=== PATIENT | female | born 1950 | race Caucasian/White ===

== ENCOUNTER 2016-03-23 13:42 | Emergency (ER) | payer MEDICARE, OTHER ==
--- NOTE | 2016-03-23 14:19 | ER Document Report ---
ED Medical Screen (RME) - General Chief Complaint: Anxious Stated Complaint: ANXIOUS,SLURRED SPEECH,WEAKNESS Notes: 66 yo female with hx/o HTN, Hyperlipidemia c/o forgetfulness, anxiousness, difficulty holding things, slurred speech. Pt reports symptoms having been ongoing since when she was treated with Augmentin for a sinus infection. No neuro deficits noted. Speech is deliberate but no slurred. TRAVEL OUTSIDE OF THE [place] IN LAST 30 DAYS: Yes - Related Data Allergies/Adverse Reactions: No Known Allergies Allergy (Unverified 03/23/16 13:55) Past Medical History - Social History Chew tobacco use (# tins/day): No Frequency of alcohol use: None Drug Abuse: None Physical Exam - Vital signs Vitals: Temp Pulse Resp BP Pulse Ox 98.3 F 113 H 18 154/95 H 97 03/23/16 13:56 03/23/16 13:56 03/23/16 13:56 03/23/16 13:56 03/23/16 13:56 Course - Vital Signs Vital signs: Temp Pulse Resp BP Pulse Ox 98.3 F 113 H 18 154/95 H 97 03/23/16 13:56 03/23/16 13:56 03/23/16 13:56 03/23/16 13:56 03/23/16 13:56
[2016-03-23 14:54] LABS: ABSOLUTE BASOPHILS # (AUTO) 0.1 10^3/uL (0.0-0.2); ABSOLUTE EOSINOPHILS # (AUTO) 0.4 10^3/uL (0.0-0.6); ABSOLUTE LYMPHOCYTES (AUTO) 1.1 10^3/uL (0.5-4.7); ABSOLUTE MONOCYTES (AUTO) 0.5 10^3/uL (0.1-1.4); ABSOLUTE NEUT (AUTO) 4.1 10^3/uL (1.7-8.2); BASOPHILS % (AUTO) 1.1 % (0-2); EOSINOPHILS % (AUTO) 5.7 % (0-6); HEMATOCRIT 41.4 % (36.0-47.0); HEMOGLOBIN 14.3 g/dL (12.0-15.5); HGB HCT DIFFERENCE 1.5; LYMPHOCYTES % (AUTO) 18.5 % (13-45); MEAN CORPUSCULAR HEMOGLOBIN 31.5 pg (27.0-33.4); MEAN CORPUSCULAR HGB CONC 34.5 g/dL (32.0-36.0); MEAN CORPUSCULAR VOLUME 91 fl (80-97); MONOCYTES % (AUTO) 8.3 % (3-13); RED BLOOD COUNT 4.53 10^6/uL (3.72-5.28); RED CELL DISTRIBUTION WIDTH 13.2 % (11.5-14.0); SEGMENTED NEUTROPHILS % (AUTO) 66.4 % (42-78); WHITE BLOOD COUNT 6.2 10^3/uL (4.0-10.5)
[2016-03-23 14:57] LABS: APPEARANCE,URINE CLEAR; BILIRUBIN,URINE NEGATIVE (NEGATIVE); GLUCOSE, URINE NEGATIVE (NEGATIVE); KETONES,URINE NEGATIVE (NEGATIVE); LEUKOCYTE ESTERASE,URINE TRACE (NEGATIVE); NITRITE,URINE NEGATIVE (NEGATIVE); PROTEIN,URINE NEGATIVE (NEGATIVE); URINE SPECIFIC GRAVITY 1.008; UROBILINOGEN,URINE NEGATIVE mg/dL (<2.0)
[2016-03-23 15:04] LABS: PROTHROMBIN TIME 12.3 SEC (11.4-15.4)
[2016-03-23 15:08] LABS: ALANINE AMINOTRANSFERASE 35 U/L (9-52); ALBUMIN 3.7 g/dL (3.5-5.0); ALKALINE PHOSPHATASE 99 U/L (38-126); ANION GAP 11 (5-19); ASPARTATE AMINO TRANSFERASE 29 U/L (14-36); BILIRUBIN,TOTAL 0.3 mg/dL (0.2-1.3); BLOOD UREA NITROGEN 14 mg/dL (7-20); CALCIUM 9.3 mg/dL (8.4-10.2); CARBON DIOXIDE 29 mmol/L (22-30); CHLORIDE 103 mmol/L (98-107); CREATININE RESULT 0.82 mg/dL (0.52-1.25); GLUCOSE 125 mg/dL (75-110); POTASSIUM 4.4 mmol/L (3.6-5.0); SODIUM 143.1 mmol/L (137-145); TOTAL PROTEIN 6.9 g/dL (6.3-8.2)
--- NOTE | 2016-03-23 16:52 | ER Document Report ---
ED General - General Chief Complaint: Anxious Stated Complaint: ANXIOUS,SLURRED SPEECH,WEAKNESS Notes: The patient is a 66-year-old female, past medical history anxiety, depression, hypothyroidism, hyperlipidemia, presents with 2 weeks of intermittent feelings of anxiety and forgetfulness. She says that when she takes her home Xanax, she feels much better. She also thinks that she is slurring her words a few weeks ago, which has resolved. She denies headache, head injury, chest pain, short of breath, abdominal pain, nausea, vomiting, weakness, numbness or tingling. TRAVEL OUTSIDE OF THE [place] IN LAST 30 DAYS: Yes - Related Data Allergies/Adverse Reactions: No Known Allergies Allergy (Unverified 03/23/16 13:55) Past Medical History - Social History Smoking Status: Former Smoker Chew tobacco use (# tins/day): No Frequency of alcohol use: None Drug Abuse: None Family History: Reviewed & Not Pertinent Patient has suicidal ideation: No Patient has homicidal ideation: No Review of Systems - Review of Systems Notes: REVIEW OF SYSTEMS: CONSTITUTIONAL: Denies fever, chills, or sweats. Denies recent illness. EENT: Denies eye, ear, throat, or mouth pain or symptoms. Denies nasal or sinus congestion. CARDIOVASCULAR: Denies chest pain. RESPIRATORY: Denies cough, cold, or chest congestion. Denies shortness of breath, difficulty breathing, or wheezing. GASTROINTESTINAL: Denies abdominal pain. Denies nausea, vomiting, or diarrhea. Denies constipation. GENITOURINARY: Denies difficulty urinating, painful urination, burning, frequency, or blood in urine. FEMALE GENITOURINARY: Denies vaginal bleeding, abnormal or irregular periods. MUSCULOSKELETAL: Denies neck or back pain or joint pain or swelling. SKIN: Denies rash or skin lesions. HEMATOLOGIC: Denies easy bruising or bleeding. LYMPHATIC: Denies swollen, enlarged glands. NEUROLOGICAL: Denies altered mental status or loss of consciousness. Denies headache. +Tremor. Denies weakness or paralysis or loss of use of either side. Denies problems with gait or speech. Denies sensory or motor loss. PSYCHIATRIC: +anxiety. Denies stress or depression. ALL OTHER SYSTEMS REVIEWED AND NEGATIVE. Physical Exam - Vital signs Vitals: Temp Pulse Resp BP Pulse Ox 98.3 F 113 H 18 154/95 H 97 03/23/16 13:56 03/23/16 13:56 03/23/16 13:56 03/23/16 13:56 03/23/16 13:56 - Notes Notes: PHYSICAL EXAMINATION: GENERAL: Well-appearing, well-nourished and in no acute distress. HEAD: Atraumatic, normocephalic. EYES: Pupils equal round and reactive to light, extraocular movements intact, sclera anicteric, conjunctiva are normal. ENT: nares patent, oropharynx clear without exudates. Moist mucous membranes. NECK: Normal range of motion, supple without lymphadenopathy LUNGS: Breath sounds clear to auscultation bilaterally and equal. No wheezes rales or rhonchi. HEART: Regular rate and rhythm without murmurs ABDOMEN: Soft, nontender, normoactive bowel sounds. No guarding, no rebound. No masses appreciated. EXTREMITIES: Normal range of motion, no pitting or edema. No cyanosis. NEUROLOGICAL: Cranial nerves grossly intact. Normal speech, normal gait. Normal sensory, motor, and reflex exams. PSYCH: Normal mood, normal affect. SKIN: Warm, Dry, normal turgor, no rashes or lesions noted. Course - Re-evaluation Re-evalutation: 03/23/16 17:17 CT head normal and labs are all unremarkable. Patient asymptomatic at this time and tachycardia resolved on exam. Instructed her to follow-up with her primary care physician for further evaluation and treatment. - Vital Signs Vital signs: Temp Pulse Resp BP Pulse Ox 98.3 F 113 H 18 154/95 H 97 03/23/16 13:56 03/23/16 13:56 03/23/16 13:56 03/23/16 13:56 03/23/16 13:56 - Laboratory Result Diagrams: 03/23/16 14:30 03/23/16 14:30 Laboratory results interpreted by me: 03/23/16 03/23/16 14:30 14:30 Glucose 125 H Ur Leukocyte Esterase TRACE H - Diagnostic Test Radiology reviewed: Image reviewed, Reports reviewed Radiology results interpreted by hi: 03/23/16 17:[address] Discharge - Discharge Clinical Impression: Anxiety Condition: Good Disposition: HOME, SELF-CARE Additional Instructions: Anxiety The physician feels that some of your health problems are being caused by anxiety. Anxiety affects your health in many ways. Anxiety alone can cause palpitations, sweats, chest pains, abdominal pains, shortness of breath, and headaches. It contributes to ulcer disease, high blood pressure, irritable bowel syndrome, and has been shown to cause flare-ups of many other diseases. Anxiety is not a simple disorder to treat. If the anxiety is due to recent life stresses, you may simply need time to "work through" the changes. If the anxiety is due to an underlying unhappiness with yourself or due to psychiatric disturbance, professional help will be needed. Your physician can refer you for further help if needed. Anti-anxiety medication is occasionally given if the stress is acute or if you are having trouble sleeping. Chronic or frequent use of these medications is not a good idea because the body becomes reliant on it, preventing you from dealing with life's normal stresses. Referrals: [facility] [Provider Group] - Follow up as needed
[2016-03-23 17:29] VITALS: BP 180/78
== END 2016-03-23 17:29 | disposition home or self-care (01) ==
LOC: ER 13:42
DX: F41.9 Anxiety disorder, unspecified (principal); R47.81 Slurred speech; R53.1 Weakness; F32.9 Major depressive disorder, single episode, unspecified; E03.9 Hypothyroidism, unspecified
CPT/HCPCS: 36415; 70450; 80053; 81001; 85025; 85610; 99284

== ENCOUNTER → 2016-05-10 | Outpatient (CLI) | payer MEDICARE, OTHER ==
--- NOTE | 2016-05-10 09:09 | ST Modified Barium Swallow ---
Recommendation - Recommendations Recommendations: 1) Continue current diet. 2) Consider GI consult due to no radiographic findings of pharyngeal deficits. SUMMARY: Pt presents with safe and effective swallow. No instances of penetration or aspiration observed. No pharyngeal residuals. Mild residuals of solids below UES. Medical Diagnoses - Medical Diagnoses Medical Diagnosis Description & ICD-10 Code(s): dysphagia Other Medical Diagnoses/Co-Morbidities: per pt- cholesterol problems, high blood pressure - ICD-10 Tx Diagnosis Coding (1) Dysphagia, unspecified ICD-10 Code(s): R13.10 - DYSPHAGIA, UNSPECIFIED ST Modified Barium Swallow - General Date: 05/10/16 Referring Physician: Dr Costello Risks/Precautions: None Date of Onset: 05/10/15 Reason for Referral: dysphagia, abnormal chest xray - History History obtained from: Patient -: Medical - pt referred by pulmonology due to abnormal chest xray. Pt reports coughing and choking on solids and liquids "a couple times a month", reports globus sensation in upper chest, no recent PNAs reported, pt reports chronic bronchitis. Pt states symptoms began approximately 1 year ago however reports progressively gotten worse. PMHx: cholesterol isses and high blood pressure. Medications: prozac, vitamin D, baby aspirin, xanex, detrol, micardis, osphena, "pill for cholesterol". Allergies: NKA - Functional Status Prior Functional Status: INDEPENDENT: feeding Current Functional Limitations: feeding - Subjective Patient/caregiver goal(s): safe swallow Cognitive-Linguistic Function: WNL Speech Intelligibility: WNL Current Nutritional Means: PO Current PO diet: Regular Current symptoms: Coughing Pain: 0/5 - Objective Assessment: Upright, Left Lateral - Food Trials Used Food trials used: Thin liquids, Pureed, Regular The patient: Was Able to Self Feed - Oral-Motor Skills Dentition: Partial Velo-pharyngeal function: Unremarkable Laryngeal Function: Volitional Cough, Volitional Swallow - Assessment Oral prep: Normal Labial closure: Adequate Leakage: None Mastication: Adequate Lingual Movement: Normal Oral stage: Normal for this Procedure - Pharyngeal Stage Initiation of Pharyngeal Stage Reflex: Normal Decreased laryngeal elevation: No Reduced Velopharyngeal Closure: no Reduced pressure generation: No reduced tongue-based retraction: No Pre-swallow pooling in valleculae: None Pre-Swallow pooling in pyriforms: None Reduced Thyro-Hyoid approximation: No Reduced epiglottic excursion: No Reduced pharyngeal peristalsis/contraction: No Post-swallow residulas vallecular: None Post-Swallow residuals in pyriforms: None - Fall Risk Assessment Medications/Conditions that increase fall risks include: Antidepressants, sedatives, anti-arrhythmic, diuretic, benzodiazipenes, neuroleptics. BP regulation problems, cardiac problems, balance or gait deficits, neurological problems. Is patient considered at risk for falls: no Fall Risk Actions Taken: No action needed - Behavioral Observations During evaluation process patient: was pleasant, was cooperative, able to answer questions, provided medical history - Treatment / Educational Needs: Treatment/Education Needs: Treatment consisted of patient education on the role of the Speech Pathologist. Patient's plan of care and golas were communicated as well as scheduling and attendance policies. Recommendations for initial home program were shared. Patient demonstrated understanding and verbalized agreement. - Impression/Summary Laryngeal Penetration: No Tracheal Aspiration: no Patient presents with: Normal swallow at eval - safe and effective swallow observed Risk of Aspiration: Minimal - Recommendations NPO: no Solid diet recommendations: Regular Liquid Diet Modification: Thin Strict aspiration precautions: No Pt/Family education and followup with MD: Yes Dysphagia therapy with HOME HEALTH NURSE LICENSED PRACTICAL: no Recommended techniques: Fully Upright During Meal Supervision: Independent Information, Precautions and Recommendations: Patient (Verbal) - Time Total Time: 15 - Plan of Care Strategies to optimize patient understanding include:: ongoing assessment of educational needs, implementation of educational strategies, and re-education. - - -: Thank you for the opportunity to work with this patient and his/her family. Should you have any questions about this patient's plan or progress, I can be reached at [phone]. Charge G Code? - - -: Yes ST F.L. Impairment Category - Rationale Based On Rationale Based On: Clin Find., Obj Measures - Swallowing Current G8996: CH 0% Impaired Goal G8997: CH 0% Impaired Discharge G8998: CH 0% Impaired
== END ==
LOC: RAD 07:15
PROVIDERS: ATTEND Internal Medicine Pulmonary Disease
DX: R13.10 Dysphagia, unspecified (principal); R93.8 Abnormal findings on diagnostic imaging of other specified body structures
CPT/HCPCS: 74230; 71250; 92611; G8996; G8997; G8998

== ENCOUNTER 2016-06-23 08:36 | Day surgery (SDC) | payer MEDICARE, OTHER ==
[~2016-06-23 08:36] MED LIST: KETOROLAC TROMETHAMINE 0.45% 4 DROP/0.4 ML DROPERETTE OS PRN; MIDAZOLAM 2 MG/2 ML INJ ONE
[2016-06-23] MEDS: CYCLOPENTOLATE 0.2%/PHENYLEPHRINE 1% OPH SOLN 2 ML OS PRN ×3 (09:16→09:32)
[2016-06-23] MEDS: BESIFLOXACIN HCL 0.6% OPH SUSP 5 ML BOTTLE OS PRN ×4 (09:16→10:22)
[2016-06-23] MEDS: TETRACAINE HCL 0.5% OPH SOLN 2 ML OS PRN ×4 (09:16→09:55)
[2016-06-23] MEDS: TROPICAMIDE 1% OPH SOLN 3 ML OS PRN ×3 (09:16→09:32)
[2016-06-23] MEDS: LIDOCAINE 1% INJ-PF (10 MG/ML) 30 ML SDV ONE ×2 (10:03)
[2016-06-23] MEDS: EPINEPHRINE INJ/PF 1 MG/1 ML AMPULE ONE ×2 (10:09)
[2016-06-23] MEDS: CHONDR SU A NA/HYALUR INTRAOC KIT (SURGICARE) ONE ×2 (10:09)
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
--- NOTE | 2016-06-23 20:04 | [facility] OPERATIVE REPORT E ---
[facility] Operative Report NAME: PAUL STINSON AGE: 66Y DATE OF SURGERY: 06/23/2016 ROOM: PREOPERATIVE DIAGNOSIS: CATARACT, LEFT EYE. POSTOPERATIVE DIAGNOSIS: CATARACT, LEFT EYE. OPERATION: Cataract extraction with intraocular lens implant of the left eye. SURGEON: DICKSON RAMOS M.D. ANESTHESIA: Topical. PROCEDURE: After obtaining appropriate consent, the patient's left eye was prepped and draped in sterile fashion as well as the surgeon in a sterile manner and cataract surgery was started. First a paracentesis blade was used to make a small side-port incision. Viscoelastic was used to inflate the anterior chamber. Next a 2.4 mm incision was made with the paracentesis blade. A continuous capsulorrhexis incision was made using a cystotome and Utrata forceps. Following this hydrodissection was carried out to make the lens fully loose and mobile and it was rotated 90 degrees. Following this, a fmuswz-xmd-lyftnbl technique was used to phacoemulsify the lens with a CDE of 4.50. The remaining cortex was removed with irrigation/aspiration. Provisc was instilled into the capsular bag to inflate the bag. A SN60WF, 24.5 diopter lens was placed. The remaining viscoelastic material was removed with irrigation/aspiration. Following this, a 10-0 nylon suture was used to close the incision and it was found to be watertight. Vigamox was instilled in the eye and a protective shield was placed over the eye. The patient returned to the postoperative recovery in stable condition. DICTATING PHYSICIAN: DICKSON RAMOS M.D. [id number] PHY#: [id number] ID: [id number] JOB#: [id number] ACCT: [id number] cc:DICKSON RAMOS M.D. >
== END 2016-06-23 11:00 | disposition home or self-care (01) ==
LOC: SC 08:36
PROVIDERS: ATTEND Internal Medicine
PROC: 08RK3JZ Replacement of Left Lens with Synthetic Substitute, Percutaneous Approach (ICD-10-PCS; principal; 2016-06-23 10:00)
DX: H25.13 Age-related nuclear cataract, bilateral (principal); H43.813 Vitreous degeneration, bilateral; H04.123 Dry eye syndrome of bilateral lacrimal glands; H52.4 Presbyopia; I10 Essential (primary) hypertension; E78.00 Pure hypercholesterolemia, unspecified; E03.9 Hypothyroidism, unspecified; M19.90 Unspecified osteoarthritis, unspecified site; F41.9 Anxiety disorder, unspecified; J44.9 Chronic obstructive pulmonary disease, unspecified; G43.909 Migraine, unspecified, not intractable, without status migrainosus; Z87.891 Personal history of nicotine dependence; Z99.81 Dependence on supplemental oxygen; Z85.41 Personal history of malignant neoplasm of cervix uteri; Z79.82 Long term (current) use of aspirin; Z79.899 Other long term (current) drug therapy
CPT/HCPCS: 66984; V2632; J2250; J3490 ×2; A9270; J0171; 142

== ENCOUNTER 2016-07-14 07:40 | Day surgery (SDC) | payer MEDICARE, OTHER ==
[~2016-07-14 07:40] MED LIST changes: +KETOROLAC TROMETHAMINE 0.45% 4 DROP/0.4 ML DROPERETTE OD PRN; -KETOROLAC TROMETHAMINE 0.45% 4 DROP/0.4 ML DROPERETTE OS PRN; -MIDAZOLAM 2 MG/2 ML INJ ONE
[2016-07-14] MEDS: TETRACAINE HCL 0.5% OPH SOLN 2 ML OD PRN ×3 (08:15→08:59)
[2016-07-14] MEDS: TROPICAMIDE 1% OPH SOLN 3 ML OD PRN ×3 (08:15→08:33)
[2016-07-14] MEDS: BESIFLOXACIN HCL 0.6% OPH SUSP 5 ML BOTTLE OD PRN ×3 (08:16→09:24)
[2016-07-14] MEDS: CYCLOPENTOLATE 0.2%/PHENYLEPHRINE 1% OPH SOLN 2 ML OD PRN ×3 (08:16→08:34)
[2016-07-14] MEDS ORDERED: EPINEPHRINE INJ/PF 1 MG/1 ML AMPULE ONE (08:45)
[2016-07-14] MEDS ORDERED: CHONDR SU A NA/HYALUR INTRAOC KIT (SURGICARE) ONE (08:45)
[2016-07-14] MEDS ORDERED: LIDOCAINE 1% INJ-PF (10 MG/ML) 30 ML SDV ONE (08:45)
[2016-07-14] MEDS ORDERED: MIDAZOLAM 2 MG/2 ML INJ ONE (08:47)
--- NOTE | 2016-07-14 19:18 | [facility] OPERATIVE REPORT E ---
[facility] Operative Report NAME: PAUL STINSON AGE: 66Y DATE OF SURGERY: 07/14/2016 ROOM: PREOPERATIVE DIAGNOSIS: Cataract, right eye. POSTOPERATIVE DIAGNOSIS: Cataract, right eye. OPERATION: Cataract extraction with intraocular lens implant of the right eye. SURGEON: DICKSON RAMOS M.D. ANESTHESIA: Topical. PROCEDURE: After obtaining appropriate consent, the patient's right eye was prepped and draped in sterile fashion as well as the surgeon in a sterile manner and cataract surgery was started. First a paracentesis blade was used to make a small side-port incision. Viscoelastic was used to inflate the anterior chamber. Next a 2.4 mm incision was made with the paracentesis blade. A continuous capsulorrhexis incision was made using a cystotome and Utrata forceps. Following this hydrodissection was carried out to make the lens fully loose and mobile and it was rotated 90 degrees. Following this, a wvjjuc-ybc-kfjrtwa technique was used to phacoemulsify the lens with a CDE of 9.34. The remaining cortex was removed with irrigation/aspiration. Provisc was instilled into the capsular bag to inflate the bag. A SN60WF, 24.0 diopter lens was placed. The remaining viscoelastic material was removed with irrigation/aspiration. Following this, a 10-0 nylon suture was used to close the incision and it was found to be watertight. Vigamox was instilled in the eye and a protective shield was placed over the eye. The patient returned to the postoperative recovery in stable condition. DICTATING PHYSICIAN: DICKSON RAMOS M.D. [id number] PHY#: [id number] ID: [id number] JOB#: [id number] ACCT: [id number] cc:DICKSON RAMOS M.D. >
--- NOTE | 2016-07-14 19:19 | [facility] DISCHARGE SUMMARY E ---
[facility] Discharge Summary NAME: PAUL STINSON AGE: 66Y ADMITTED: 07/14/2016 DISCHARGED: 07/14/2016 HISTORY OF PRESENT ILLNESS AND HOSPITAL COURSE: This is a 66-year-old female who underwent cataract extraction of the right eye. DIAGNOSIS: Cataract, right eye. HOSPITAL COURSE: She underwent surgery because she was having difficulty reading small print as well as driving at nighttime. DISCHARGE INSTRUCTIONS: 1. She should be on a regular diet. 2. No bending at the waist and no heavy lifting. 3. She should use her Besivance, Ilevro, and Durezol at 3 p.m. and 8 p.m. and sleep with a rigid shield. 4. I will see her for her one-day postoperative tomorrow. DICTATING PHYSICIAN: DICKSON RAMOS M.D. [id number] PHY#: [id number] ID: [id number] JOB#: [id number] ACCT: [id number] cc:DICKSON RAMOS M.D. >
== END 2016-07-14 10:05 | disposition home or self-care (01) ==
LOC: SC 07:40
PROVIDERS: ATTEND Internal Medicine
PROC: 08RJ3JZ Replacement of Right Lens with Synthetic Substitute, Percutaneous Approach (ICD-10-PCS; principal; 2016-07-14 09:00)
DX: H25.11 Age-related nuclear cataract, right eye (principal); Z96.1 Presence of intraocular lens; I10 Essential (primary) hypertension; E07.9 Disorder of thyroid, unspecified; R00.0 Tachycardia, unspecified; J84.112 Idiopathic pulmonary fibrosis; Z79.82 Long term (current) use of aspirin; Z79.899 Other long term (current) drug therapy
CPT/HCPCS: 66984; V2632; J2250; J3490 ×2; A9270; J0171; 142

== ENCOUNTER → 2016-08-03 | Outpatient (CLI) | payer MEDICARE, OTHER ==
[2016-08-04 13:27] LABS: ERYTHROCYTE SEDIMENTATION RATE 25 mm/hr (0-30)
[2016-08-04 15:39] LABS: APPEARANCE,URINE CLEAR; BILIRUBIN,URINE NEGATIVE (NEGATIVE); GLUCOSE, URINE NEGATIVE (NEGATIVE); KETONES,URINE NEGATIVE (NEGATIVE); LEUKOCYTE ESTERASE,URINE SMALL (NEGATIVE); NITRITE,URINE NEGATIVE (NEGATIVE); PROTEIN,URINE NEGATIVE (NEGATIVE); URINE SPECIFIC GRAVITY 1.009; UROBILINOGEN,URINE NEGATIVE mg/dL (<2.0)
[2016-08-04 16:00] LABS: ABSOLUTE BASOPHILS # (AUTO) 0.1 10^3/uL (0.0-0.2); ABSOLUTE EOSINOPHILS # (AUTO) 0.3 10^3/uL (0.0-0.6); ABSOLUTE LYMPHOCYTES (AUTO) 1.3 10^3/uL (0.5-4.7); ABSOLUTE MONOCYTES (AUTO) 0.6 10^3/uL (0.1-1.4); ABSOLUTE NEUT (AUTO) 5.9 10^3/uL (1.7-8.2); BASOPHILS % (AUTO) 1.4 % (0-2); EOSINOPHILS % (AUTO) 3.2 % (0-6); HEMATOCRIT 43.6 % (36.0-47.0); HEMOGLOBIN 14.2 g/dL (12.0-15.5); LYMPHOCYTES % (AUTO) 15.9 % (13-45); MEAN CORPUSCULAR HEMOGLOBIN 30.9 pg (27.0-33.4); MEAN CORPUSCULAR HGB CONC 32.7 g/dL (32.0-36.0); MEAN CORPUSCULAR VOLUME 95 fl (80-97); MONOCYTES % (AUTO) 7.6 % (3-13); RED CELL DISTRIBUTION WIDTH 12.8 % (11.5-14.0); SEGMENTED NEUTROPHILS % (AUTO) 71.9 % (42-78); WHITE BLOOD COUNT 8.3 10^3/uL (4.0-10.5)
== END ==
LOC: OD 14:45
PROVIDERS: ATTEND Internal Medicine Pulmonary Disease
DX: R93.8 Abnormal findings on diagnostic imaging of other specified body structures (principal); R05 Cough; R31.9 Hematuria, unspecified; R09.82 Postnasal drip
CPT/HCPCS: 36415; 81001; 82785; 85025; 85652

== ENCOUNTER 2016-11-09 20:11 | Emergency (ER) | payer MEDICARE, OTHER ==
--- NOTE | 2016-11-09 20:54 | RADIOLOGY REPORT (SQ) ---
EXAM DESCRIPTION: CHEST SINGLE VIEW COMPLETED DATE/TIME: 11/09/2016 8:46 pm REASON FOR STUDY: right lung biopsy on the 16, pain. COMPARISON: 05/10/2016 EXAM PARAMETERS: NUMBER OF VIEWS: One view. TECHNIQUE: Single frontal radiographic view of the chest acquired. RADIATION DOSE: NA LIMITATIONS: None. FINDINGS: LUNGS AND PLEURA: Increased fibrotic changes bilaterally, more confluent in the right rajinder phery and right lung base. No pneumothorax. MEDIASTINUM AND HILAR STRUCTURES: Stable. HEART AND VASCULAR STRUCTURES: Stable. BONES: No acute findings. HARDWARE: None in the chest. OTHER: No other significant finding. IMPRESSION: Increased fibrotic changes bilaterally, more confluent in the right periphery and right lung base. No pneumothorax. TECHNICAL DOCUMENTATION: JOB ID: [id number]
[2016-11-09 20:58] LABS: ABSOLUTE BASOPHILS # (AUTO) 0.1 10^3/uL (0.0-0.2); ABSOLUTE EOSINOPHILS # (AUTO) 0.7 10^3/uL (0.0-0.6); ABSOLUTE LYMPHOCYTES (AUTO) 1.5 10^3/uL (0.5-4.7); ABSOLUTE MONOCYTES (AUTO) 0.8 10^3/uL (0.1-1.4); ABSOLUTE NEUT (AUTO) 4.9 10^3/uL (1.7-8.2); BASOPHILS % (AUTO) 1.1 % (0-2); HEMATOCRIT 33.6 % (36.0-47.0); HEMOGLOBIN 11.3 g/dL (12.0-15.5); HGB HCT DIFFERENCE 0.3; LYMPHOCYTES % (AUTO) 18.9 % (13-45); MEAN CORPUSCULAR HEMOGLOBIN 31.1 pg (27.0-33.4); MEAN CORPUSCULAR HGB CONC 33.7 g/dL (32.0-36.0); MEAN CORPUSCULAR VOLUME 92 fl (80-97); RED BLOOD COUNT 3.65 10^6/uL (3.72-5.28); RED CELL DISTRIBUTION WIDTH 12.8 % (11.5-14.0)
[2016-11-09 21:03] LABS: ALANINE AMINOTRANSFERASE 29 U/L (9-52); ALBUMIN 3.6 g/dL (3.5-5.0); ALKALINE PHOSPHATASE 89 U/L (38-126); ANION GAP 5 (5-19); ASPARTATE AMINO TRANSFERASE 32 U/L (14-36); BILIRUBIN,DIRECT 0.4 mg/dL (0.0-0.4); BILIRUBIN,TOTAL 0.5 mg/dL (0.2-1.3); BLOOD UREA NITROGEN 16 mg/dL (7-20); CALCIUM 9.7 mg/dL (8.4-10.2); CARBON DIOXIDE 32 mmol/L (22-30); CHLORIDE 98 mmol/L (98-107); GLUCOSE 109 mg/dL (75-110); POTASSIUM 4.7 mmol/L (3.6-5.0); SODIUM 135.2 mmol/L (137-145); TOTAL PROTEIN 7.1 g/dL (6.3-8.2)
[2016-11-09] MEDS ORDERED: KETOROLAC TROMETHAMINE INJ/PF 30 MG/1 ML SDV IV ONE (21:05)
[2016-11-09] MEDS ORDERED: HYDROCODONE/ACETAMINOPHEN 10-325 MG TABLET PO ONE (21:05)
--- NOTE | 2016-11-09 21:12 | ER Document Report ---
ED Respiratory Problem - General Chief Complaint: Breathing Difficulty Stated Complaint: DIFFICULTY BREATHING Time Seen by Provider: 11/09/16 20:56 TRAVEL OUTSIDE OF THE [place] IN LAST 30 DAYS: No - HPI Notes: 66-year-old female with history of pulmonary fibrosis presents after recent lung biopsy 11/02/16. She is having pain in the right chest with deep inspiration. She has not somewhat short of breath as it is very painful. She has some dry cough but no purulent sputum no hemoptysis. There is a note of confusion that she states is not abnormal. She has generalized weakness. She states she has a pain tolerance that is high in the Percocet does not seem to help. She did take the hydrocodone-chlorpheniramine ER cough syrup which does seem to help though she is almost out of that. It is a 12 hour extended release cough syrup and she was prescribed 300 mL. She is using Tessalon Perles intermittently. She is not using anti-inflammatories as she states it does not seem to help in the past that she is going on chronic narcotics for migraines. - Related Data Allergies/Adverse Reactions: No Known Allergies Allergy (Verified 07/11/16 10:42) Past Medical History - Social History Smoking Status: Never Smoker Family History: Reviewed & Not Pertinent - Past Medical History Cardiac Medical History: Reports: Hx Hypertension Denies: Hx Heart Attack Pulmonary Medical History: Denies: Hx Asthma Neurological Medical History: Denies: Hx Cerebrovascular Accident, Hx Seizures GI Medical History: Denies: Hx Hepatitis, Hx Hiatal Hernia, Hx Ulcer Infectious Medical History: Denies: Hx Hepatitis Past Surgical History: Denies: Hx Mastectomy, Hx Open Heart Surgery, Hx Pacemaker Review of Systems - Review of Systems -: Yes All other systems reviewed and negative Physical Exam - Vital signs Vitals: Temp Pulse Resp BP Pulse Ox 98.0 F 96 22 H 110/59 L 100 11/09/16 20:22 11/09/16 20:22 11/09/16 20:22 11/09/16 20:22 11/09/16 20:22 Notes: Nursing notes reviewed. Oxygen saturation 100% room air - Notes Notes: Physical Exam: GENERAL: VS as per nursing doc. Well-appearing, well-nourished and in no acute distress but does splint slightly with deep inspiration. HEAD: Atraumatic, normocephalic. EYES: Sclera anicteric, no conjunctival injection or discharge. ENT: Nares patent, oropharynx clear without exudates. Moist mucous membranes. NECK: Normal range of motion, supple without lymphadenopathy. No crepitance noted LUNGS: Breath sounds are coarse but equal symmetrically. No signs of infection at biopsy site which is the right posterior back HEART: Normal S1S2. Regular rate and rhythm without murmurs. Equal peripheral pulses. ABDOMEN: Soft, non-tender. EXTREMITIES: Normal range of motion. No calf tenderness. Negative Homans. No edema. NEUROLOGICAL: Normal speech. Normal sensory and motor exams. No gross cerebellar abnormalities as has normal finger-nose testing. Gait testing yet to be performed. PSYCH: Normal mood, normal affect. Alert and oriented 3 SKIN: Warm, dry, no cyanosis, Cap refill < 2 sec. Course - Re-evaluation Re-evalutation: 11/09/16 21:28 Reviewed findings with the patient and at her request family. They give a different history of her being more confused than they think she should be. She apparently walked in fine she had the biopsy and has been not the same since with difficulty getting up and around, walking as well as having incontinence. She reports this is only stress incontinence when she coughs or when she tries to get up. I recommended further evaluation but she is refusing at this point. This included the urinalysis already ordered and a head CT. Though reluctant, we will try to ambulate the patient as she states she can walk but the family states she cannot. 11/09/16 21:35 Apparently the patient is out of her prescriptions for the long-acting hydrocodone-chlorpheniramine ER cough syrup. As well is out of the Tessalon Perles. Though they are complaining of the patient being slightly confused and more somnolent, they are all requesting for her to have a different pain medication than the oxycodone since it does not seem to be helping. They report that she fell today but she denies any injury. 11/09/16 22:07 I discussed again with the family after they talked. I ambulated the patient myself in the pena. She had good strength but did seem slightly unsteady. She was able to turn around and walk back to her bed as well. She is oriented 3 and has capable decision making and refused any further evaluation with risk and understood. She understands the risks of the medications but they are all very concerned about her pain level since having the procedure on the . They are aware of the medication risks particularly with mixing. Encouraged them to discuss further with her primary care physician tomorrow. - Vital Signs Vital signs: Temp Pulse Resp BP Pulse Ox 98.0 F 96 22 H 110/59 L 100 11/09/16 20:22 11/09/16 20:22 11/09/16 20:22 11/09/16 20:22 11/09/16 20:22 - Laboratory Result Diagrams: 11/09/16 20:33 11/09/16 20:33 Laboratory results interpreted by me: 11/09/16 11/09/16 20:33 20:33 RBC 3.65 L Hgb 11.3 L Hct 33.6 L Eosinophils % 9.0 H Absolute Eosinophils 0.7 H Sodium 135.2 L Carbon Dioxide 32 H - EKG Interpretation by Me EKG shows normal: Sinus rhythm - Normal sinus rhythm, rate 93, normal QRS, no clear ischemia. Interpretation normal EKG Discharge - Discharge Clinical Impression: Pleuritic chest pain Condition: Good Disposition: HOME, SELF-CARE Additional Instructions: Please ensure that you understand that the medications will cause increasing sedation, potential confusion and unsteadiness. Understand the increased risk of fall. Please review with your primary care physician as well. Please return if you change your mind about further evaluation and treatment. I recommend you use the naproxen for discomfort initially and limit any of the sedating medications. Prescriptions: Hydrocodone/Acetaminophen [[place] 5-325 mg Tablet] 1 tab PO Q4HP PRN #10 tablet PRN Reason: For Pain Benzonatate [Tessalon Perle 100 mg Capsule] 100 mg PO Q8HP PRN #20 cap PRN Reason: Hydrocodone/Chlorphen P-Stirex [Hydrocodone-Chlorpheniram Susp] 5 ml PO Q12H PRN #150 [email or web address] PRN Reason: Referrals: LAURYN HINDS MD [Primary Care Provider] - Follow up tomorrow
--- NOTE | 2016-11-09 21:44 | EKG REPORT ---
SEVERITY:- NORMAL ECG - SINUS RHYTHM : Confirmed by: George Kim 09-Nov-2016 21:43:42
[2016-11-09 22:56] VITALS: BP 101/60
== END 2016-11-09 23:10 | disposition home or self-care (01) ==
LOC: ER 20:11
DX: R07.81 Pleurodynia (principal); J84.10 Pulmonary fibrosis, unspecified; R07.1 Chest pain on breathing; Z98.890 Other specified postprocedural states; R05 Cough; R53.1 Weakness; R41.0 Disorientation, unspecified; R32 Unspecified urinary incontinence; I10 Essential (primary) hypertension; Z91.81 History of falling
CPT/HCPCS: 93005; 99285; 96374; 36415; 85025; 80053; 84484; 71010; 93010; J1885; A9270

== ENCOUNTER 2017-02-17 09:52 | Emergency (ER) | payer MEDICARE, OTHER ==
--- NOTE | 2017-02-17 10:12 | ER Document Report ---
ED Respiratory Problem - General Mode of Arrival: Medic Information source: Emergency Med Personnel TRAVEL OUTSIDE OF THE [place] IN LAST 30 DAYS: No - HPI Patient complains to provider of: Short of breath <OLE BARLOW - Last Filed: 02/17/17 13:53> <ANGELINA MCFADDEN - Last Filed: 02/17/17 16:16> <KRISTOFER MCKEON - Last Filed: 02/17/17 21:51> - General Stated Complaint: DIFFICULTY BREATHING Time Seen by Provider: 02/17/17 09:57 Notes: Patient is a 67 year old female that presents to the emergency department today with complaints of respiratory distress. EMS states that on arrival the patient' s oxygen saturation was 50%. EMS states that the patient has a history of pulmonary fibrosis. History is limited secondary to the patient's medical condition. (OLE BARLOW) - Related Data Allergies/Adverse Reactions: No Known Allergies Allergy (Verified 07/11/16 10:42) Past Medical History - General Information source: Patient, Emergency Med Personnel, [facility] Records - Social History Smoking Status: Former Smoker Cigarette use (# per day): No Frequency of alcohol use: None Drug Abuse: None Lives with: Family Family History: Reviewed & Not Pertinent, CAD - Past Medical History Cardiac Medical History: Reports: Hx Hypertension Pulmonary Medical History: Reports: Hx Asthma, Other - Pulmonary Fibrosis Psychiatric Medical History: Reports: Hx Anxiety - takes xanax 0.5mg at night Surgical Hx: Negative <OLE BARLOW - Last Filed: 02/17/17 13:53> - General Information source: Patient, Emergency Med Personnel, [facility] Records - Social History Smoking Status: Former Smoker Cigarette use (# per day): No Chew tobacco use (# tins/day): No Smoking Education Provided: No Frequency of alcohol use: None Drug Abuse: None Occupation: Disabled Lives with: Family Pulmonary Medical History: Reports: Hx Asthma <ANGELINA MCFADDEN - Last Filed: 02/17/17 16:16> Review of Systems - Review of Systems -: Yes ROS unobtainable due to patient's medical condition <OLE BARLOW - Last Filed: 02/17/17 13:53> Physical Exam - General General appearance: Appears well In distress: None - HEENT Head: Normocephalic, Atraumatic Eyes: Normal Conjunctiva: Normal - Respiratory Respiratory status: Respiratory distress - moderate Breath sounds: Wheezing - inspiratory/expiratory - Cardiovascular Rhythm: Regular Heart sounds: Normal auscultation Murmur: No - Abdominal Inspection: Normal Distension: No distension - Extremities General upper extremity: Normal inspection, Normal ROM. No: Edema General lower extremity: Normal inspection, Normal ROM. No: Edema - Neurological Neuro grossly intact: Yes Cognition: Normal Orientation: AAOx4 - Psychological Associated symptoms: Normal affect, Normal mood - Skin Skin Temperature: Warm Skin Moisture: Dry Skin Color: Normal <OLE BARLOW - Last Filed: 02/17/17 13:53> - Vital signs Vitals: Resp BP Pulse Ox 30 H 128/64 H 90 L 02/17/17 10:03 02/17/17 10:03 02/17/17 10:03 Course - Laboratory Result Diagrams: 02/17/17 10:00 02/17/17 10:00 <OLE BARLOW - Last Filed: 02/17/17 13:53> - Laboratory Result Diagrams: 02/17/17 10:00 02/17/17 10:00 - Diagnostic Test Radiology reviewed: Image reviewed, Reports reviewed - EKG Interpretation by [facility] EKG shows normal: Sinus rhythm, [place], Intervals, QRS Complexes, ST-T Waves Rate: Tachycardia - 121 [place]/QRS: IVCD When compared to previous EKG there are: No significant change - Consults Dr. Rangel Time consulted: 11:25 Consulted provider: will come to ER - IMCU admit Dr. Brody Time consulted: 12:15 Consulted provider: other - We will accept at [facility] for Dr. Sanders <ANGELINA MCFADDEN - Last Filed: 02/17/17 16:16> - Laboratory Result Diagrams: 02/17/17 10:00 02/17/17 10:00 <KRISTOFER MCKEON - Last Filed: 02/17/17 21:51> - Re-evaluation Re-evalutation: 02/17/17 12:32 Patient was initially accepted by the hospitalist service here for admission. The spouse stated he did not want her admitted here under any circumstances. Call was placed to [facility] to transfer the patient to her pulmonary medicine doctors there. 02/17/17 16:16 Patient is getting a migraine headache and is requesting a dose of her Zomig. She does not have a medication with her, and it is not on formulary here, so she will be given a dose of Imitrex. (ANGELINA MCFADDEN) 02/17/17 21:47 Helicopter crew arrived and was at bedside trying to transfer her to their CPAP machine, but she did not tolerate the transition well at all, developed hypoxia. Even when transferred back to our BiPAP machine she still had intermittent hypoxia and felt quite short of breath. I discussed with her the benefits of intubation for the transport they are considering she was unable to tolerate there is CPAP and was hypoxic. Patient agreed to be intubated. Patient was then sedated with ketamine and then paralyzed with vecuronium, intubated with desaturation but no aspiration. Post intubation chest x-ray confirmed tube placement, then transported without any further difficulty by the helicopter crew. This is a late entry. (KRISTOFER MCKEON) - Vital Signs Vital signs: Temp Pulse Resp BP Pulse Ox 32 H 124/66 99 02/17/17 19:00 02/17/17 19:00 02/17/17 19:00 - Laboratory Laboratory results interpreted by me: 02/17/17 02/17/17 02/17/17 10:00 10:00 10:00 WBC 20.0 H RDW 15.1 H Seg Neuts % (Manual) 87 H Band Neutrophils % 2 L Lymphocytes % (Manual) 5 L Metamyelocytes % 1 H Abs Neuts (Manual) 18.0 H ABG pO2 ABG HCO3 ABG Total CO2 ABG O2 Saturation Glucose 158 H Lactic Acid 3.9 H Creatine Kinase < 20 L Albumin 3.4 L 02/17/17 02/17/17 11:20 14:22 WBC RDW Seg Neuts % (Manual) Band Neutrophils % Lymphocytes % (Manual) Metamyelocytes % Abs Neuts (Manual) ABG pO2 63.1 L ABG HCO3 26.6 H ABG Total CO2 27.7 H ABG O2 Saturation 93.2 L Glucose Lactic Acid 2.3 H Creatine Kinase Albumin Procedures - Intubation Orotracheal Airway evaluation: Normal anatomy Mallampati Classification: Class 2 Medications: Ketamine, Vecuronium Intubation method: Orotracheal Blade type: Jess Blade size: 4 ETT size: 8.0 ETT secured at: Teeth ETT secured at (cm): 22 Breath Sounds after Intubation: Equal End tidal CO2 confirmed: Yes Ventilator settings: SIMV Tidal volume: 400 FiO2: 100 Respirations: 16 PEEP: 7 Post Intubation Xray: Yes Intubation Complications: O2 saturation decreased <KRISTOFER MCKEON - Last Filed: 02/17/17 21:51> Critical Care Note - Critical Care Note Total time excluding time spent on procedures (mins): 45 <ANGELINA MCFADDEN - Last Filed: 02/17/17 16:16> Discharge <OLE BARLOW - Last Filed: 02/17/17 13:53> <ANGELINA MCFADDEN - Last Filed: 02/17/17 16:16> <KRISTOFER MCKEON - Last Filed: 02/17/17 21:51> - Discharge Clinical Impression: Acute respiratory failure with hypoxia, Pulmonary fibrosis, Chronic respiratory failure with hypoxia, on home O2 therapy, Acidosis, lactic Pneumonia Qualifiers: Pneumonia type: due to unspecified organism Laterality: bilateral Lung location : upper lobe of lung Qualified Code(s): J18.9 - Pneumonia, unspecified organism Fever Qualifiers: Fever type: unspecified Qualified Code(s): R50.9 - Fever, unspecified Leukocytosis Qualifiers: Leukocytosis type: unspecified Qualified Code(s): D72.829 - Elevated white blood cell count, unspecified Condition: Fair Disposition: [facility] Referrals: LAURYN HINDS MD [Primary Care Provider] - Follow up as needed Scribe Attestation: 02/17/17 11:17 I personally performed the services described in the documentation, reviewed and edited the documentation which was dictated to the scribe in my presence, and it accurately records my words and actions. (ANGELINA MCFADDEN) Scribe Documentation - Scribe Written by Bang:: Bang Louis, 02/17/2017 1221 acting as scribe for :: Jesse <OLE BARLOW - Last Filed: 02/17/17 13:53>
[2017-02-17 10:23] LABS: HEMATOCRIT 36.1 % (36.0-47.0); HEMOGLOBIN 12.1 g/dL (12.0-15.5); HGB HCT DIFFERENCE 0.2; MEAN CORPUSCULAR HEMOGLOBIN 30.7 pg (27.0-33.4); MEAN CORPUSCULAR HGB CONC 33.4 g/dL (32.0-36.0); MEAN CORPUSCULAR VOLUME 92 fl (80-97); RED BLOOD COUNT 3.94 10^6/uL (3.72-5.28); RED CELL DISTRIBUTION WIDTH 15.1 % (11.5-14.0)
--- NOTE | 2017-02-17 10:37 | RADIOLOGY REPORT (SQ) ---
EXAM DESCRIPTION: CHEST SINGLE VIEW COMPLETED DATE/TIME: 02/17/2017 10:28 am REASON FOR STUDY: SOB, pulm fibrosis COMPARISON: 11/13/2016 and 03/01/2016. EXAM PARAMETERS: NUMBER OF VIEWS: One view. TECHNIQUE: Single frontal radiographic view of the chest acquired. RADIATION DOSE: NA LIMITATIONS: None. FINDINGS: LUNGS AND PLEURA: Extensive chronic pulmonary fibrosis. Slightly more dense in the periph rancho of the right and left lung. No large pleural effusion. No pneumothorax. MEDIASTINUM AND HILAR STRUCTURES: No masses. Contour normal. HEART AND VASCULAR STRUCTURES: Heart normal in size. Normal vasculature. BONES: No acute findings. HARDWARE: None in the chest. OTHER: No other significant finding. IMPRESSION: CHRONIC PULMONARY FIBROSIS. THE PERIPHERY OF THE LUNGS APPEAR SLIGHTLY MORE DENSE. MIGUEL E OF THIS MAY BE DUE TO RADIOGRAPHIC TECHNIQUE ALTHOUGH PROGRESSIVE SCARRING AND/OR INFILTRATE CANNOT BE EXCLUDED. TECHNICAL DOCUMENTATION: JOB ID: [id number]- All Rights Reserved
[2017-02-17 10:39] LABS: ALANINE AMINOTRANSFERASE 26 U/L (9-52); ALBUMIN 3.4 g/dL (3.5-5.0); ALKALINE PHOSPHATASE 108 U/L (38-126); ANION GAP 13 (5-19); ASPARTATE AMINO TRANSFERASE 31 U/L (14-36); BILIRUBIN,DIRECT 0.4 mg/dL (0.0-0.4); BILIRUBIN,TOTAL 0.6 mg/dL (0.2-1.3); BLOOD UREA NITROGEN 15 mg/dL (7-20); CALCIUM 8.8 mg/dL (8.4-10.2); CARBON DIOXIDE 25 mmol/L (22-30); CHLORIDE 100 mmol/L (98-107); CREATININE RESULT 0.77 mg/dL (0.52-1.25); GLUCOSE 158 mg/dL (75-110); POTASSIUM 3.9 mmol/L (3.6-5.0); SODIUM 138.3 mmol/L (137-145); TOTAL PROTEIN 6.4 g/dL (6.3-8.2)
[2017-02-17 10:42] LABS: CREATINE KINASE < 20 U/L (30-135)
[2017-02-17] MEDS ORDERED: ACETAMINOPHEN 650 MG SUPP.RECT PR ONE (10:51)
[2017-02-17] MEDS ORDERED: LEVOFLOXACIN 750 MG/D5W RTU 750 MG/150 ML RTUPB IV ONE (10:52)
[2017-02-17 11:00] LABS: ANISOCYTOSIS SLIGHT; BAND NEUTROPHILS % (MANUAL) 2 % (3-5); BASOPHILS % (MANUAL) 0 % (0-2); EOSINOPHILS % (MANUAL) 0 % (0-6); LYMPHOCYTES % (MANUAL) 5 % (13-45); POLYCHROMASIA SLIGHT; TOTAL CELLS COUNTED 100; TOXIC GRANULATION 2+; TOXIC VACUOLATION PRESENT
[2017-02-17 12:17] LABS: ARTERIAL BLOOD BASE EXCESS 2.5 mmol/L; ARTERIAL BLOOD O2 SATURATION 93.2 % (94-98)
[2017-02-17] MEDS ORDERED: PIPERACILLIN/TAZOBACTAM 3.375 GM VIAL IV ONE (12:28)
[2017-02-17] MEDS ORDERED: VANCOMYCIN HCL INJ 1000 MG VIAL IV ONE (12:28)
--- NOTE | 2017-02-17 13:11 | EKG REPORT ---
SEVERITY:- ABNORMAL ECG - SINUS TACHYCARDIA NONSPECIFIC IVCD WITH LAD NONSPECIFIC ST-T CHANGES- INFERIOR LEADS : Confirmed by: Paramjit Reed MD 17-Feb-2017 13:10:37
[2017-02-17] MEDS ORDERED: LEVALBUTEROL HCL NEB 1.25 MG/3 ML AMPUL NEB ONE (15:45)
[2017-02-17] MEDS ORDERED: SUMATRIPTAN SUCCINATE 25 MG TABLET PO PRN (16:16)
[2017-02-17 19:21] VITALS: BP 124/66
[2017-02-17] MEDS ORDERED: KETAMINE HCL INJ 500 MG/10 ML VIAL ONE (20:02)
[2017-02-17] MEDS ORDERED: VECURONIUM BROMIDE INJ 10 MG VIAL IV ONE ×2 (20:03→21:47)
--- NOTE | 2017-02-17 20:28 | RADIOLOGY REPORT (SQ) ---
EXAM DESCRIPTION: CHEST SINGLE VIEW COMPLETED DATE/TIME: 02/17/2017 8:18 pm REASON FOR STUDY: ETT PLACEMENT COMPARISON: CT angio chest 11/13/2016 Chest films 03/01/2016, 11/13/2016, 02/17/2017 EXAM PARAMETERS: NUMBER OF VIEWS: One view. TECHNIQUE: Single frontal radiographic view of the chest acquired. RADIATION DOSE: NA LIMITATIONS: None. FINDINGS: Endotracheal tube tip 2 cm above the cali. LUNGS AND PLEURA: Diffuse bilateral airspace disease worrisome for pulmonary edema. This is superimp osed on advanced pulmonary fibrosis. No pneumothorax. No pleural effusions. Faintly radiopaque yogi in the right lateral costophrenic sulcus post open lung biopsy. MEDIASTINUM AND HILAR STRUCTURES: No masses. Contour normal. HEART AND VASCULAR STRUCTURES: No cardiomegaly BONES: No acute findings. HARDWARE: None in the chest. OTHER: No other significant finding. IMPRESSION: Diffuse bilateral airspace disease worrisome for pulmonary edema. ARDS or pneumonia are possible. Underlying extensive pulmonary fibrosis Endotracheal tube tip in good positioning TECHNICAL DOCUMENTATION: JOB ID: [id number]- All Rights Reserved
[2017-02-17] MEDS ORDERED: KETAMINE HCL INJ 500 MG/10 ML VIAL IV ONE (21:46)
== END 2017-02-17 20:09 | disposition short-term general hospital (02) ==
LOC: ER 09:52
DX: J96.21 Acute and chronic respiratory failure with hypoxia (principal); J18.9 Pneumonia, unspecified organism; J84.10 Pulmonary fibrosis, unspecified; J45.909 Unspecified asthma, uncomplicated; Z99.81 Dependence on supplemental oxygen; E87.2 Acidosis; G43.909 Migraine, unspecified, not intractable, without status migrainosus; R50.9 Fever, unspecified; I10 Essential (primary) hypertension; R00.0 Tachycardia, unspecified; I45.9 Conduction disorder, unspecified
CPT/HCPCS: 93005; 94640; 99291; 96365; 96366; 96367; 96368; 36415; 87040; 82803; 82550; 85025; 80053; 84484; 83605; 71010; 93010; 36600; 94660; 31500; A9270 ×2; J3490 ×3; J3370; J1956; J2543